=== PATIENT | male | born 1955 | race American Indian/Alaskan Native ===

== ENCOUNTER 2017-03-30 21:37 | Emergency (ER) | payer MEDICARE ==
[~2017-03-30 21:37] MED LIST: ADRENALIN ONE; ATROPINE 0.1% (CARDIAC) ONE; CALCIUM CHLORIDE IV ONE; CORDARONE IV ONE; INTROPIN DRIP 800 MG/D5W 250 ML IV ONE; MAGNESIUM SULFATE ONE; SODIUM BICARBONATE IV ONE; XYLOCAINE CARDIAC IV ONE
[2017-03-30] MEDS ORDERED: NACL 0.9% 500 ML 500 ML IV ONE (21:46)
[2017-03-30] MEDS ORDERED: ASPIRIN PO ONE (21:49)
--- NOTE | 2017-03-30 21:51 | Emergency Department Report ---
ED Chest Pain HPI - General Stated Complaint: CHEST PAIN Time Seen by Provider: 03/30/17 21:44 Source: patient, EMS, old records reviewed Mode of arrival: Stretcher Limitations: No Limitations - History of Present Illness Initial Comments: 61-year-old male with a past medical history of hypertension, CAD (status post CABG), atrial fibrillation, CHF, hypertension, diabetes, dyslipidemia, and GERD presents to the hospital complaints of suicidal onset of left-sided chest pain prior to arrival. Patient complains of constant sharp dull pain that is moderate to severe in intensity. Pain is constant without aggravating alleviating factors. Positive associated nausea, vomiting, and diaphoresis. Denies shortness of breath. Patient took one nitroglycerin prior to arrival. EMS reports hypotension and 70 palp upon their arrival. IV fluids initiated. Patient received 100 mL prior to arrival with improvement in pressure to 99 systolic. Patient is compliant with all medications however, he discontinued Coumadin secondary to recent colonoscopy. Patient was supposed to restart that medication last week but did not because he forgot to put it in his pill box. Patient's recycling program manager is affiliated with the [facility]. Previous medical record review. Patient was admitted here December 2016 for chest pain. He had a stress test showing severe dilated cardiopathy with prior large lateral wall infarct. No significant reversible ischemia demonstrated. Ejection fraction 30 %. Diagnosed at the time with atypical chest pain/costochondritis. Curtain Stretcher group: [place] [facility] - Related Data Home Medications Medication Instructions Recorded Confirmed Last Taken Acetaminophen [Acetaminophen TAB] 325 mg PO Q6HR PRN 12/21/16 12/21/16 12/16/16 AtorvaSTATin [Lipitor] 80 mg PO QAM 12/21/16 12/21/16 12/21/16 Furosemide [Lasix TAB] 40 mg PO QDAY 12/21/16 12/21/16 12/21/16 ISOSORBIDE MONOnitrate [Imdur ER] 30 mg PO QAM 12/21/16 12/21/16 12/21/16 Valsartan [Diovan] 40 mg PO BID 12/21/16 12/21/16 12/21/16 glipiZIDE [Glucotrol] 20 mg PO BID 12/21/16 12/21/16 12/21/16 Previous Rx's Medication Instructions Recorded Last Taken Type Famotidine/Ca Carb/Mag Hydrox 1 each PO BID #20 tab.chew 12/22/16 Unknown Rx [Pepcid Complete Tablet Chew] oxyCODONE /ACETAMINOPHEN [Percocet 1 tab PO Q12H PRN #10 tablet 12/22/16 Unknown Rx 5/325] Allergies Allergy/AdvReac Type Severity Reaction Status Date / Time No Known Allergies Allergy Verified 12/21/16 23:05 Heart Score - HEART Score History: Slightly suspicious EKG: Non-specific Age: 45-65 Risk factors: > 3 risk factors or hx of atherosclerotic disease Troponin: < normal limit HEART Score: 4 ED Review of Systems ROS: Stated complaint: CHEST PAIN Other details as noted in HPI Comment: All other systems reviewed and negative Other: Constitutional: No fevers chills Eyes: No eye pain visual changes or discharge ENT: No ear pain or throat pain Neck: Denies pain Respiratory: Denies cough wheezing shortness of breath Cardiovascular: Denies syncope. Positive chest pain GI: Denies abdominal allegra : Denies dysuria Musculoskeletal: Denies back pain Skin: Positive diaphoresis Neurologic: Denies headache, numbness, focal weakness Psychiatric: Denies suicidal ideation, hallucinations ED Past Medical Hx - Past Medical History Hx Hypertension: Yes Hx Heart Attack/AMI: Yes Hx Congestive Heart Failure: Yes Hx Diabetes: Yes Additional medical history: afib, anemia, - Surgical History Hx Open Heart Surgery: Yes (triple bypass, quad bypass) - Social History Smoking Status: Former Smoker - Medications Home Medications: Home Medications Medication Instructions Recorded Confirmed Last Taken Type Acetaminophen [Acetaminophen TAB] 325 mg PO Q6HR PRN 12/21/16 12/21/16 12/16/16 History AtorvaSTATin [Lipitor] 80 mg PO QAM 12/21/16 12/21/16 12/21/16 History Furosemide [Lasix TAB] 40 mg PO QDAY 12/21/16 12/21/16 12/21/16 History ISOSORBIDE MONOnitrate [Imdur ER] 30 mg PO QAM 12/21/16 12/21/16 12/21/16 History Valsartan [Diovan] 40 mg PO BID 12/21/16 12/21/16 12/21/16 History glipiZIDE [Glucotrol] 20 mg PO BID 12/21/16 12/21/16 12/21/16 History Famotidine/Ca Carb/Mag Hydrox 1 each PO BID #20 tab.chew 12/22/16 Unknown Rx [Pepcid Complete Tablet Chew] oxyCODONE /ACETAMINOPHEN [Percocet 1 tab PO Q12H PRN #10 tablet 12/22/16 Unknown Rx 5/325] ED Physical Exam - Other Other exam information: General: No limitations, patient is alert in no acute distress Head exam: Atraumatic, normocephalic Eyes exam: Normal appearance, pupils equal reactive to light, extraocular movements intact ENT: Moist mucous membrane, normal oropharynx Neck exam: Normal inspection, full range of motion, no meningismus nontender Respiratory exam: Clear to auscultation bilateral, no wheezes, rales, crackles. Sternotomy scar noted Cardiovascular: Normal rate and rhythm Abdomen: Soft, nondistended, and nontender, with normal bowel sounds, no rebound, or guarding Extremity: Full range of motion normal inspection no deformity Back: Normal Inspection, full range of motion, no tenderness Neurologic: Alert, oriented x3, cranial nerves intact, no motor or sensory deficit Psychiatric: normal affect, normal mood Skin: Diaphoretic ED Course Vital Signs 03/30/17 03/30/17 03/30/17 21:40 21:46 22:00 Temperature Pulse Rate 81 78 83 Respiratory 18 17 21 Rate Blood Pressure 93/69 Blood Pressure [Left] O2 Sat by Pulse 98 99 99 Oximetry 03/30/17 03/30/17 03/30/17 22:01 22:16 23:08 Temperature 98.6 F Pulse Rate 81 124 H Respiratory 20 20 Rate Blood Pressure 82/36 77/45 Blood Pressure 99/68 [Left] O2 Sat by Pulse 99 96 Oximetry 03/30/17 03/30/17 23:20 23:40 Temperature Pulse Rate Respiratory Rate Blood Pressure 120/105 51/25 Blood Pressure [Left] O2 Sat by Pulse Oximetry - Reevaluation(s) Reevaluation #1: 03/30/17 22:23 I was called to the room since patient collapsed on the floor. I was informed by RN the patient had used a bowel movement and refused to use the bedpan. Patient was ambulating to the bedside commode and found collapse with agonal respirations and pulselessness. Patient was bagged, bus monitor showed V. tach. Patient received epinephrine and defibrillator shock. 03/30/17 23:59 Throughout resuscitation efforts patient remained in V. tach arrest during the majority of efforts then would deteriorate PEA and towards the end of resuscitation efforts temporarily had a audible pulse with Doppler there was intermittently palpable. Patient received a total of 14 doses of epinephrine, defibrillated 10, 1 dose of sodium bicarbonate, amiodarone 300 followed by 150 , lidocaine 100 mg, magnesium 2 g, and calcium during resuscitation efforts. When we did obtain a pulse patient's hypotensive and dopamine was initiated at maximum infusion level through the external jugular 18-gauge catheter. Patient' s pulse remained weak and thready despite these medications and intermittent epinephrine administration. I was prepping to place central line. Patient subsequently became pulseless with PEA and became completely apneic. Resuscitation efforts were began at 22:23 and time of at 23:47. - Consultations Consultation #1: 03/30/17 23:[address] Renteria prior to patient arrest. Was able to discuss patient with recycling program manager at this time. Informed the patient remains in V. tach despite multiple meds and multiple shots. Suggest that further resuscitation efforts may be futile. Had no additional suggestions regarding resuscitation efforts and medications. Reviewed EKG and agrees there is no acute change compared to previous - EJ/Peripheral Line Neck R Time Out Performed: Yes Indications: multiple IV sites needed Skin Cleansed in Sterile Fashion: Yes Size: 18 Dressing Placed: Tegaderm, tape Patient Tolerated Procedure: well, no complications - Intubation Time Out Performed: Yes Sedative: none Laryngoscope: Dean Size: 4 ET Tube Size: 8 Tube Secured Depth (cm): 22 Tube Secured Location: lips Tube Placement Confirmation: visualized tube passing t, equal breath sounds bilat, no breath sounds over epi, confirmation by capnometr Patient Tolerated Procedure: well Intubation Complications: none PIETRO score - Pietro Score Age > 65: (0) No Aspirin use within the Past 7 Days: (1) Yes 3 or more CAD Risk Factors: (1) Yes 2 or more Angina events in past 24 hrs: (0) No Known CAD with more than 50% Stenosis: (1) Yes Elevated Cardiac Markers: (0) No ST Deviation Greater than 0.5mm: (0) No PIETRO Score: 3 ED Medical Decision Making - Lab Data Result diagrams: 03/30/17 21:45 03/30/17 21:45 Lab Results 0803/30/17 03/30/17 Range/Units 21:45 21:45 21:45 WBC 20.0 H (4.5-11.0) K/mm3 RBC 4.82 (3.65-5.03) M/mm3 Hgb 12.8 (11.8-15.2) gm/dl Hct 39.7 (35.5-45.6) % MCV 82 L (84-94) fl MCH 27 L (28-32) pg MCHC 32 (32-34) % RDW 19.4 H (13.2-15.2) % Plt Count 293 (140-440) K/mm3 Lymph # Glass Blowing Instructor Add Manual Diff Complete Total Counted 100 Seg Neuts % (Manual) 49.0 (40.0-70.0) % Band Neutrophils % 0 % Lymphocytes % (Manual) 43.0 H (13.4-35.0) % Reactive Lymphs % (Man) 0 % Monocytes % (Manual) 7.0 (0.0-7.3) % Eosinophils % (Manual) 0 (0.0-4.3) % Basophils % (Manual) 1.0 (0.0-1.8) % Metamyelocytes % 0 % Myelocytes % 0 % Promyelocytes % 0 % Blast Cells % 0 % Nucleated RBC % Not Reportable Seg Neutrophils # Man 9.8 H (1.8-7.7) K/mm3 Band Neutrophils # 0.0 K/mm3 Lymphocytes # (Manual) 8.6 H (1.2-5.4) K/mm3 Abs React Lymphs (Man) 0.0 K/mm3 Monocytes # (Manual) 1.4 H (0.0-0.8) K/mm3 Eosinophils # (Manual) 0.0 (0.0-0.4) K/mm3 Basophils # (Manual) 0.2 H (0.0-0.1) K/mm3 Metamyelocytes # 0.0 K/mm3 Myelocytes # 0.0 K/mm3 Promyelocytes # 0.0 K/mm3 Blast Cells # 0.0 K/mm3 WBC Morphology Not Reportable Hypersegmented Neuts Not Reportable Hyposegmented Neuts Not Reportable Hypogranular Neuts Not Reportable Smudge Cells Not Reportable Toxic Granulation Not Reportable Toxic Vacuolation Not Reportable Dohle Bodies Not Reportable Pelger-Huet Anomaly Not Reportable Kt Rods Not Reportable Platelet Estimate Appears normal Clumped Platelets Not Reportable Plt Clumps, EDTA Not Reportable Large Platelets Not Reportable Giant Platelets Not Reportable Platelet Satelliting Not Reportable Plt Morphology Comment Not Reportable RBC Morphology Not Reportable Dimorphic RBCs Not Reportable Polychromasia Not Reportable Hypochromasia Not Reportable Poikilocytosis Not Reportable Anisocytosis 1+ Microcytosis Not Reportable Macrocytosis Not Reportable Spherocytes Not Reportable Pappenheimer Bodies Not Reportable Sickle Cells Not Reportable Target Cells Not Reportable Tear Drop Cells Not Reportable Ovalocytes Not Reportable Stomatocytes Rare Helmet Cells Not Reportable [place] Bodies Not Reportable [place] Rings Not Reportable [place] Cells Not Reportable Bite Cells Not Reportable Crenated Cell Not Reportable Elliptocytes Not Reportable Acanthocytes (Spur) Not Reportable Rouleaux Not Reportable Hemoglobin C Crystals Not Reportable Schistocytes Not Reportable Malaria parasites Not Reportable Arben Bodies Not Reportable Hem Pathologist Commnt No PT 13.7 (12.2-14.9) Sec. INR 1.06 (0.87-1.13) APTT 28.1 (24.2-36.6) Sec. D-Dimer 237.91 H (0-234) ng/mlDDU Carbon Dioxide 23 (22-30) mmol/L BUN 18 (9-20) mg/dL Creatinine 1.5 (0.8-1.5) mg/dL Estimated GFR 57 ml/min BUN/Creatinine Ratio 12.00 % Glucose 232 H (75-100) mg/dL Calcium 9.5 (8.4-10.2) mg/dL Total Creatine Kinase (55-170) units/L CK-MB (CK-2) (0.0-4.0) ng/mL CK-MB (CK-2) Rel Index (0-4) Troponin T < 0.010 (0.00-0.029) ng/mL Blood Type Antibody Screen 03/30/17 03/30/17 Range/Units 21:45 21:55 WBC (4.5-11.0) K/mm3 RBC (3.65-5.03) M/mm3 Hgb (11.8-15.2) gm/dl Hct (35.5-45.6) % MCV (84-94) fl MCH (28-32) pg MCHC (32-34) % RDW (13.2-15.2) % Plt Count (140-440) K/mm3 Lymph # Add Manual Diff Total Counted Seg Neuts % (Manual) (40.0-70.0) % Band Neutrophils % % Lymphocytes % (Manual) (13.4-35.0) % Reactive Lymphs % (Man) % Monocytes % (Manual) (0.0-7.3) % Eosinophils % (Manual) (0.0-4.3) % Basophils % (Manual) (0.0-1.8) % Metamyelocytes % % Myelocytes % % Promyelocytes % % Blast Cells % % Nucleated RBC % Seg Neutrophils # Man (1.8-7.7) K/mm3 Band Neutrophils # K/mm3 Lymphocytes # (Manual) (1.2-5.4) K/mm3 Abs React Lymphs (Man) K/mm3 Monocytes # (Manual) (0.0-0.8) K/mm3 Eosinophils # (Manual) (0.0-0.4) K/mm3 Basophils # (Manual) (0.0-0.1) K/mm3 Metamyelocytes # K/mm3 Myelocytes # K/mm3 Promyelocytes # K/mm3 Blast Cells # K/mm3 WBC Morphology Hypersegmented Neuts Hyposegmented Neuts Hypogranular Neuts Smudge Cells Toxic Granulation Toxic Vacuolation Dohle Bodies Pelger-Huet Anomaly Kt Rods Platelet Estimate Clumped Platelets Plt Clumps, EDTA Large Platelets Giant Platelets Platelet Satelliting Plt Morphology Comment RBC Morphology Dimorphic RBCs Polychromasia Hypochromasia Poikilocytosis Anisocytosis Microcytosis Macrocytosis Spherocytes Pappenheimer Bodies Sickle Cells Target Cells Tear Drop Cells Ovalocytes Stomatocytes Helmet Cells [place] Bodies [place] Rings Robert Cells Bite Cells Crenated Cell Elliptocytes Acanthocytes (Spur) Rouleaux Hemoglobin C Crystals Schistocytes Malaria parasites Arben Bodies Hem Pathologist Commnt PT (12.2-14.9) Sec. INR (0.87-1.13) APTT (24.2-36.6) Sec. D-Dimer (0-234) ng/mlDDU Carbon Dioxide (22-30) mmol/L BUN (9-20) mg/dL Creatinine (0.8-1.5) mg/dL Estimated GFR ml/min BUN/Creatinine Ratio % Glucose (75-100) mg/dL Calcium (8.4-10.2) mg/dL Total Creatine Kinase 124 (55-170) units/L CK-MB (CK-2) 2.1 (0.0-4.0) ng/mL CK-MB (CK-2) Rel Index 1.6 (0-4) Troponin T (0.00-0.029) ng/mL Blood Type O POSITIVE Antibody Screen Negative Sodium 138, potassium 4.2, chloride 95.5, anion gap 24 - EKG Data -: EKG Interpreted by Me (sinus rate 83 nonspecific intraventricular block, rightward axis, no stemmi) - EKG Data When compared to previous EKG there are: no significant change (compared to 12/23) - Radiology Data Radiology results: image reviewed (pcxr: naf) - Medical Decision Making Despite extended resuscitation efforts patient was unable to sustain a perfusable rhythm. Patient's lab reveal in over troponin and a d-dimer less than 250. EKG is unchanged compared to previous and does not show signs of acute ST elevation PA. Time of 23:47 Patient's sisters were in the ED and were informed of his . - Differential Diagnosis my, unstable angina, PE, dissection, atypical chest pain Critical Care Time: Yes Critical care time in (mins) excluding proc time.: 90 Critical care attestation.: If time is entered above; I have spent that time in minutes in the direct care of this critically ill patient, excluding procedure time. ED Disposition Clinical Impression: Chest pain, Cardiopulmonary arrest, Ventricular tachycardia, PEA (Pulseless electrical activity), Hx of CABG Disposition: DC-20 Is pt being admited?: No Condition: Stable Instructions: Chest Pain (ED) Time of Disposition: 00:04
[2017-03-30 21:59] LABS: Hematocrit 39.7 % (35.5-45.6); Hemoglobin 12.8 gm/dl (11.8-15.2); Mean Corpuscular HGB Conc 32 % (32-34); Mean Corpuscular Hemoglobin 27 pg (28-32); Mean Corpuscular Volume 82 fl (84-94); Platelet Count 293 K/mm3 (140-440); Red Blood Count 4.82 M/mm3 (3.65-5.03); Red Cell Distribution Width 19.4 % (13.2-15.2)
[2017-03-30] MEDS ORDERED: ZOFRAN IV ONE (22:12)
[2017-03-30 22:13] LABS: INR 1.06 (0.87-1.13); Partial Thromboplastin Time 28.1 Sec. (24.2-36.6)
[2017-03-30] MEDS ORDERED: ZOFRAN ONE (22:16)
[2017-03-30 22:21] LABS: Anion Gap 24 mmol/L; Blood Urea Nitrogen 18 mg/dL (9-20); Calcium 9.5 mg/dL (8.4-10.2); Carbon Dioxide 23 mmol/L (22-30); Chloride 95.5 mmol/L (98-107); Glucose 232 mg/dL (75-100); Potassium 4.2 mmol/L (3.6-5.0); Sodium 138 mmol/L (137-145)
[2017-03-30 22:36] LABS: Creatine Kinase MB 2.1 ng/mL (0.0-4.0)
[2017-03-30 22:46] LABS: Anisocytosis 1+; Blastocytes % (Manual) 0 %; Eosinophils % (Manual) 0 % (0.0-4.3)
[2017-03-30 22:47] LABS: Diff Status Complete; Stomatocytes Rare
[2017-03-30] MEDS ORDERED: NACL 0.9% 1000 ML 1,000 ML ONE (22:51)
[2017-03-30] MEDS ORDERED: ADRENALIN 8 MG in NACL 0.9% 250ML 242 ML IV ONE (23:41)
[2017-03-31 02:12] VITALS: BP 51/25
--- NOTE | 2017-03-31 08:20 | XRay Report ---
PORTABLE CHEST INDICATION: Chest pain. COMPARISON: 12/21/2016 FINDINGS: Portable, frontal chest radiograph again demonstrates exaggerated cardiomediastinal silhouette/mild cardiomegaly, post CABG changes and slightly prominent markings centrally, given slightly poorer inspiration. No large pleural effusions or cephalization. Aortic knob calcifications. EKG leads. Stable bones. CONCLUSION: No significant acute chest process or interval change with mild cardiomegaly and post CABG changes again noted, as described. Please correlate. Thank you for the opportunity to participate in this patient's care.
== END 2017-03-31 02:20 ==
LOC: ED 21:37
DX: I46.9 Cardiac arrest, cause unspecified (principal); I47.2 Ventricular tachycardia; R07.9 Chest pain, unspecified; Z95.1 Presence of aortocoronary bypass graft
CPT/HCPCS: 31500; 36415; 36569; 71010; 80048; 82550; 82553; 82962; 84484; 85007; 85025; 85379; 85610; 85730; 86850; 86900; 86901; 92950; 93005; 93010; 96374; 99291; 99292; J0171; J0282; J0461; J1265; J2001; J2405; J3475; J7030; J7050